=== PATIENT | female | born 1960 | race American Indian/Alaskan Native ===

== ENCOUNTER 2018-06-05 16:00 | Emergency (ER) | payer BC ==
[2018-06-05 16:14] VITALS: BP 113/80; PULSE 73; RESP 18; TEMP 98; O2SAT 95
--- NOTE | 2018-06-05 16:38 | C.PDOC ---
History Of Present Illness 57 year old female presents to the emergency department with complaints of productive cough (clear phlegm), congestion, and body aches for the last four days. Patient denies fever and tobacco use. Time Seen by Provider: 06/05/18 16:28 Chief Complaint (Nursing): Cough, Cold, Congestion History Per: Patient History/Exam Limitations: no limitations Onset/Duration Of Symptoms: Days (4) Current Symptoms Are (Timing): Still Present Associated Symptoms: Cough, Sputum, Nasal Congestion, Other (body aches). denies: Fever Past Medical History Reviewed: Historical Data, Nursing Documentation, Vital Signs Vital Signs: Last Vital Signs Temp 98 F 06/05/18 16:10 Pulse 73 06/05/18 16:10 Resp 18 06/05/18 16:10 BP 113/80 06/05/18 16:10 Pulse Ox 95 06/05/18 16:10 - Medical History PMH: HTN Surgical History: No Surg Hx Family History: States: No Known Family Hx - Social History Hx Tobacco Use: No Hx Alcohol Use: Yes Hx Substance Use: No - Immunization History Hx Tetanus Toxoid Vaccination: No Hx Influenza Vaccination: No Hx Pneumococcal Vaccination: No Review Of Systems Except As Marked, All Systems Reviewed And Found Negative. ENT: Positive for: Nose Congestion Respiratory: Positive for: Cough Physical Exam - Physical Exam Appears: Well, Non-toxic, No Acute Distress Skin: Normal Color, Warm, Dry Head: Atraumatic, Normacephalic Eye(s): bilateral: Normal Inspection, PERRL, EOMI Nose: Normal Oral Mucosa: Moist Chest: Symmetrical, No Tenderness Cardiovascular: Rhythm Regular Respiratory: Normal Breath Sounds Neurological/Psych: Oriented x3, Normal Speech, Normal Cognition ED Course And Treatment O2 Sat by Pulse Oximetry: 95 (RA) Pulse Ox Interpretation: Normal Medical Decision Making Medical Decision Making: Patient is requesting antibiotics stating that she often gets pneumonia. Patient would like Augmentin. Patient advised of concern over administration of antibiotics and is insistent upon receiving them. Patient discharged home, will f/u with PMD. Disposition Counseled Patient/Family Regarding: Diagnosis, Need For Followup, Rx Given - Disposition Referrals: Pa Macedo MD [Medical Doctor] - Disposition: HOME/ ROUTINE Disposition Time: 16:36 Condition: STABLE Additional Instructions: follow up with your doctor within 2 days call to make an appointment take medications as prescribed return to ER if symptoms worsens or progress Prescriptions: Albuterol Sulfate [Proventil Hfa] 2 puff IH QID #1 [email or web address] Amoxicillin/Clavulanate [Augmentin 875 MG-125 MG] 1 tab PO BID #20 tab Benzonatate [Tessalon Perles] 100 mg PO BID PRN #14 tab PRN Reason: Cough Naproxen [Naprosyn] 500 mg PO BID PRN #16 tab PRN Reason: Pain, Moderate (4-7) Instructions: Acute Bronchitis Forms: [facility] (Lao), General Discharge Instructions - Clinical Impression Clinical Impression: Bronchitis - Scribe Statement The provider has reviewed the documentation as recorded by the Scribe (Cy Kathleen) Provider Attestation: All medical record entries made by the Scribe were at my direction and personally dictated by me. I have reviewed the chart and agree that the record accurately reflects my personal performance of the history, physical exam, medical decision making, and the department course for this patient. I have also personally directed, reviewed, and agree with the discharge instructions and disposition.
== END 2018-06-05 17:16 | disposition home or self-care (01) ==
LOC: C.ER 16:00
DX: J40 Bronchitis, not specified as acute or chronic (principal)